=== PATIENT | female | born 1980 | race Caucasian/White ===

== ENCOUNTER 2021-12-19 07:37 | Emergency (ER) | payer BC, OTHER ==
[2021-12-19] MEDS ORDERED: Acetaminophen 500 MG TAB ONE (08:00)
[2021-12-19 19:39] LABS: SARS-CoV-2 PCR by NAA DETECTED (NotDetected)
== END 2021-12-19 08:05 | disposition home or self-care (01) ==
LOC: BURERS 07:37
DX: U07.1 COVID-19 (principal); J10.1 Influenza due to other identified influenza virus with other respiratory manifestations; I10 Essential (primary) hypertension; E03.9 Hypothyroidism, unspecified; K21.9 Gastro-esophageal reflux disease without esophagitis; Z79.899 Other long term (current) drug therapy
CPT/HCPCS: 87804; 99283; U0003; U0005